=== PATIENT | female | born 1980 | race African-American/Black ===

== ENCOUNTER 2018-05-03 12:04 | Emergency (ER) | payer MEDICAID, OTHER ==
[~2018-05-03] VITALS: Ht 160 cm; Wt 71.0 kg
[2018-05-03 12:07] VITALS: BP 133/90
[2018-05-03] MEDS ORDERED: HYDROcodone/APAP 5/325 TABLET PO ONE (12:30)
[2018-05-03] MEDS ORDERED: HYDROcodone/APAP 5/325 TABLET ONE (12:53)
== END 2018-05-03 13:21 | disposition home or self-care (01) ==
LOC: ED 13:10
DX: S93.492A Sprain of other ligament of left ankle, initial encounter (principal); F17.200 Nicotine dependence, unspecified, uncomplicated; W19.XXXA Unspecified fall, initial encounter; Y93.89 Activity, other specified; Y92.009 Unspecified place in unspecified non-institutional (private) residence as the place of occurrence of the external cause; Y99.8 Other external cause status
CPT/HCPCS: 99283